=== PATIENT | male | born 1935 | race Caucasian/White ===

== ENCOUNTER 2018-06-03 07:41 | Day surgery (SDC) | payer MEDICARE, BC ==
[~2018-06-03] VITALS: Ht 188 cm; Wt 80.0 kg
[2018-06-03 08:05] VITALS: BP 140/70; PULSE 53; TEMP 98.3
[2018-06-03 08:19] LABS: HEMATOCRIT 37.5 % (42.0-52.0); HEMOGLOBIN 12.9 g/dl (13.5-18.0); MEAN CELL VOLUME 91 fl (80.0-100.0); MEAN CORPUSCULAR HEMOGLOBIN 31 pg (27.0-31.0); MEAN CORPUSCULAR HGB CONC 34 g/dl (33.0-37.0); MEAN PLATELET VOLUME 10.3 fl (7.4-10.4); PLATELET COUNT 270 K/mm3 (130-400); RED BLOOD COUNT 4.13 M/mm3 (4.20-5.60); REDCELL DISTRIBUTION WIDTH-CV 12.3 % (11.5-14.5)
[2018-06-03 08:23] LABS: INR 1.1 (0.8-3.0)
[2018-06-03] MEDS ORDERED: BENICAR40 MG PO (08:44)
[2018-06-03] MEDS ORDERED: HCTZ12.5TAB PO (08:45)
[2018-06-03] MEDS ORDERED: LIPITOR 10MG10 MG PO (08:45)
[2018-06-03] MEDS ORDERED: MEGA MULTIVITAM1 TAB PO (08:46)
[2018-06-03] MEDS ORDERED: THE MEDICINE S200 M2 PO (08:47)
[2018-06-03] MEDS ORDERED: ASPIRIN 81M81 MG/TA2 PO (08:48)
[2018-06-03] MEDS ORDERED: D-2000 90 MG-201 TAB PO (08:48)
[2018-06-03] MEDS ORDERED: B COMPLEX #11 TAB (08:50)
[2018-06-03 13:25] VITALS: BP 145/73; BP 152/77; PULSE 46; PULSE 55; TEMP 98.2
[2018-06-03 13:36] VITALS: BP 152/77; PULSE 47
[2018-06-03 13:55] VITALS: BP 152/74; PULSE 46
== END 2018-06-03 14:20 | disposition home or self-care (01) ==
LOC: COL.CAR 07:41
PROVIDERS: Internal Medicine Interventional Cardiology
DX: I49.9 Cardiac arrhythmia, unspecified (principal); I10 Essential (primary) hypertension; Z79.82 Long term (current) use of aspirin; Z79.02 Long term (current) use of antithrombotics/antiplatelets; Z85.828 Personal history of other malignant neoplasm of skin; Z82.49 Family history of ischemic heart disease and other diseases of the circulatory system

== ENCOUNTER 2019-05-11 13:56 | Inpatient (IN) | payer MEDICARE, BC ==
[~2019-05-11] VITALS: Ht 188 cm; Wt 85.0 kg
[~2019-05-11 13:56] MED LIST: ASPIRIN 81M81 MG/TA2 PO; B COMPLEX #11 TAB; BENICAR40 MG PO; HCTZ12.5TAB PO; IMDUR 30MG30 MG/TAB PO; LIPITOR 10MG10 MG PO; MAGNESIUM500 MG PO; MEGA MULTIVITAM1 TAB PO; NITROSTAT0.4 MG/TAB SL; THE MEDICINE S200 M2 PO; VITAMIND3 5000 PO; [UNRECOGNIZED DRUG - OTHER] PO
[2019-05-11 16:46] VITALS: BP 135/61; PULSE 59; TEMP 98.2
--- NOTE | 2019-05-11 17:10 | NUR ---
Report from Navin. Pt admitted to room 333, to chair with call lt in reach. Pt alert, oriented, denies using assistive devices for ambulation, reports pain 2/10 in sternum. NKDA, full code, wears glasses, own teeth, no hearing aids.
--- NOTE | 2019-05-11 20:25 | NUR ---
Pt's graft site to LLE with two punctures, lower thigh area pink-red, some ecchymosis, lower CDI, edges of both well approximated without swelling or drainage. Report to ARIANA Lazar.
--- NOTE | 2019-05-11 21:00 | NUR ---
PT SITTING IN RECLINER. WATCHING TV. VERY PLEASANT AND COOPERATIVE. PT REQUESTED AIR MATTRESS FOR SORE COCCYX AND BACK PAIN. ASSISTED TO BR. STEADY GAIT SBA. NO WALKER. VOIDED W/O DIFFICUTLY. NO SKIN ISSUES TO COCCYX. SHIFT ASSESSMENT COMPLETED. REVIEWED IPR THERAPY SCHEDULE & ROUTINE. READY FOR BED. CALLIGHT IN REACH. BED ALARM SET.
--- NOTE | 2019-05-12 03:11 | NUR ---
PT C/O LOW BACK ACHE. WHICH HE HAS AT HOME TOO. ASSISTED TO RECLINER. TYLENOL GIVEN. CALL LIGHT IN REACH.
[2019-05-12 05:39] VITALS: BP 143/59; PULSE 61; TEMP 98.3
--- NOTE | 2019-05-12 10:47 | NUR ---
Patient resting in bed at this time, call light in reach and bed alarm is on. Patient attended morning therapies. He reports not sleeping well last night due to back ache. Staff placed an air mattress on his bed and patient reports that it has provided more comfort. Patient took his morning pills one at a time and drank from mug without a straw per dysphagia requirements. Patient's daughter was agitated with staff this morning, she would not discuss it with this nurse. Patient was asked if it was okay for staff to give personal health information on him to his daughter and he stated, "Yes what ever she wants." "Not sure what is wrong. Just calm her down." This nurse completed his assessment and will continue to monitor patient.
--- NOTE | 2019-05-12 15:55 | NUR ---
SW met with the patient to complete initial intake, as the patient is new to [facility]. The patient lives in [place] with his , Abril. He reports independence with ADLs prior to hospitalization and does not have any DME. The patient's PCP is Dr. Hubert Hair and he receives his medications at the [facility] in [place]. He reports no difficulties obtaining his meds. The patient does not have advanced directives in EMR or in his chart, but he states that he does have them completed and at home. He states that his is his DPOA-HC. SW to continue to follow to ensure a safe discharge.
[2019-05-12 16:31] VITALS: BP 134/54; PULSE 65; TEMP 98.1
--- NOTE | 2019-05-12 19:23 | NUR ---
Patient was complaining of ankle swelling pain and he does have pitting edema to bilateral ankles. Dr. Chapin was called and he okayed for patient to have a one time order of Lasix 40 mg to help with ankle edema. Patient's daughter had this nurse call the [facility] to verify that he had been given Furosemide when he was there and what dose it was. This nurse called [facility] and found out that he had been given Forosemide 40 mg PO two doses that started on 05/10 and ended on 05/11. See orders for labs to be drawn tomorrow per Dr. Chapin. Reported off to night nurse.
--- NOTE | 2019-05-12 20:00 | NUR ---
PT RESTING IN BED. SEEMS ALITTLE WITHDARWN/ DEPRESSED? DENIES ANYTHING WRONG. DENIES PAIN. ENC PT TO KEEP FEET ELEVATED MUCH POSSIBLE AND THAT WE'LL KEEP TRACK OF I&O 'S D/T LASIX AND FLUID RESTRICTION. PT MOD I IN ROOM WITH W/C. CALL LIGHT IN REACH. PT DENIES NEEDS. RELATES HE IS JUST BORED.
--- NOTE | 2019-05-12 22:00 | NUR ---
PT SITTING ON SOFA READING A BOOK. DENIES NEEDS.
--- NOTE | 2019-05-13 02:32 | NUR ---
PT SLEEPING. NO DISTRESS.
--- NOTE | 2019-05-13 05:05 | NUR ---
PT RE[ORTS HAS NOT SLEPT VERY MUCH AT ALL. UPINDEPENDENTLY TO BR.
[2019-05-13 05:15] VITALS: BP 138/65; PULSE 72; TEMP 98.1
[2019-05-13 08:03] LABS: BASO % 0.3 % (0.0-2.0); EOS # 0.1 (0.0-0.7); EOS % 1.1 % (0-4.0); GRAN # 7.5 (1.4-6.5); GRAN % 72.2 % (42.2-75.2); LYMPH # 1.6 (1.2-3.4); LYMPH % 15.1 % (20.0-51.0); MEAN CELL VOLUME 94 fl (80.0-100.0); MEAN CORPUSCULAR HGB CONC 33 g/dl (33.0-37.0); MEAN PLATELET VOLUME 10.5 fl (7.4-10.4); MONO # 1.1 (0.1-0.6); MONO % 10.2 % (1.7-9.3); PLATELET COUNT 529 K/mm3 (130-400); RED BLOOD COUNT 3.13 M/mm3 (4.20-5.60); REDCELL DISTRIBUTION WIDTH-CV 13.1 % (11.5-14.5)
[2019-05-13 08:04] LABS: HEMATOCRIT 29.3 % (42.0-52.0); HEMOGLOBIN 9.6 g/dl (13.5-18.0); MEAN CORPUSCULAR HEMOGLOBIN 31 pg (27.0-31.0)
--- NOTE | 2019-05-13 08:39 | NUR ---
Observed patient having pain with urination this morning and reporting that he felt like he couldn't pee very well. Bladder scan completed and he had 999 ml in bladder. Receivied orders from Dr. Chapin for straight Cath and to send out for UA/UC. This was completed. Patient tolerated with some discomfort reported. Will continue to monitor I&O's on patient.
[2019-05-13 08:40] LABS: CALCIUM 8.4 mg/dL (8.4-10.2); CREATININE, serum 1.26 (0.66-1.25); MAGNESIUM 1.7 mg/dL (1.6-2.3); POTASSIUM 4.2 mmol/L (3.4-5.0)
[2019-05-13 08:47] LABS: PH 7 (5-8); SQUAMOUS EPITHELIAL None Seen /hpf; URINE APPEARANCE Clear; URINE BACTERIA Rare /hpf; URINE BILIRUBIN Negative (NEGATIVE); URINE BLOOD Negative (NEGATIVE); URINE COLOR Yellow; URINE GLUCOSE Negative (NEGATIVE); URINE KETONE Negative (NEGATIVE); URINE LEUKOCYTE ESTERASE Negative (NEGATIVE); URINE NITRATE Negative (NEGATIVE); URINE PROTEIN(semi-quant) Negative (NEGATIVE); URINE RBC 0-2 /hpf; URINE UROBILINOGEN Negative (NEGATIVE)
[2019-05-13 10:02] LABS: COLLECTION METHOD CLEAN CATCH
--- NOTE | 2019-05-13 16:23 | NUR ---
Bladder scan completed and had 396 retention. Patient had voided prior to this with [address] Chapin was called and he started patient on Flomax. Patient was given this med. Will continue to monitor.
--- NOTE | 2019-05-13 16:29 | NUR ---
Patient requested the use of jia hose. See new orders per Dr. Amber Chapni. Patient was fitted and is currently wearing these jia hose. Will continue to monitor.
[2019-05-13 17:12] VITALS: BP 116/49; PULSE 70; TEMP 98.1
--- NOTE | 2019-05-13 20:30 | NUR ---
PT TOOK WALK IN PENA WITH WC. PT DENIES ANY BLADDER DISTRESS AT THIS TIME. PT VERBALIZED READY TO GO HOME.
--- NOTE | 2019-05-13 21:00 | NUR ---
AIR MATTRESS IN PLACE D/T BACK DISCOMFORT ON ADMISSION. SCHEDULED TYLENOL GIVEN.
--- NOTE | 2019-05-14 02:20 | NUR ---
PT FRUSTRATED WITH BACK DISCOMFORT AND BED. GAVE TYLENOL AFTER PT INITIALLY DECLINED. GAVE BACK RUB AND PLACED WARM PACK BETWEEN SHOULDER BLADES. PT BACK TO BED. HO B ELEVATED AND FEET ELEVATED ON TWO PILLOWS. FOR EDEMA.
[2019-05-14 05:47] VITALS: BP 131/72; PULSE 72; TEMP 98.3
--- NOTE | 2019-05-14 06:00 | NUR ---
PT SLEPT WELL SINCE TYLENOL GIVEN EARLIER. PAIN GONE. KENYA HOSE IRRITATING FEET- REMOVED FOR NOW. EDEMA IMPROVED.
--- NOTE | 2019-05-14 08:57 | NUR ---
PT REPORTS PAIN ACROSS BACK AND SHOULDERS. STERNUM IS SORE BUT NOT PAINFUL. VOIDS WELL LT YELLOW URINE. ATE 100%MEAL. GIVEN AM MEDS
--- NOTE | 2019-05-14 12:45 | NUR ---
PT STATES HE HAS AMBULATED AROUND THE UNIT 4 TIMES TODAY.
[2019-05-14 16:26] VITALS: BP 107/60; PULSE 74; TEMP 98.3
[2019-05-15 04:20] VITALS: BP 142/58; PULSE 79; TEMP 99.1
--- NOTE | 2019-05-15 06:18 | NUR ---
PT HAD A RESTFUL NIGHT. DAUGHTER CALLED FROM OUT OF STATE TO GET UPDATE.
[2019-05-15 07:13] LABS: BASO % 0.2 % (0.0-2.0); EOS % 0.2 % (0-4.0); GRAN # 16.5 (1.4-6.5); GRAN % 87.4 % (42.2-75.2); LYMPH # 1.1 (1.2-3.4); LYMPH % 5.6 % (20.0-51.0); MEAN CELL VOLUME 94 fl (80.0-100.0); MEAN CORPUSCULAR HGB CONC 33 g/dl (33.0-37.0); MEAN PLATELET VOLUME 10.3 fl (7.4-10.4); MONO # 1.1 (0.1-0.6); PLATELET COUNT 437 K/mm3 (130-400); RED BLOOD COUNT 3.01 M/mm3 (4.20-5.60); REDCELL DISTRIBUTION WIDTH-CV 13.2 % (11.5-14.5)
[2019-05-15 07:27] LABS: ALBUMIN 2.7 gm/dL (3.5-5.0); BILIRUBIN,TOTAL 0.4 mg/dL (0.0-1.0); CALCIUM 8.3 mg/dL (8.4-10.2); CREATININE, serum 1.26 (0.66-1.25); MAGNESIUM 1.8 mg/dL (1.6-2.3); POTASSIUM 4.5 mmol/L (3.4-5.0); TOTAL PROTEIN 5.9 gm/dL (6.4-8.2)
[2019-05-15 07:30] LABS: HEMATOCRIT 28.4 % (42.0-52.0); HEMOGLOBIN 9.3 g/dl (13.5-18.0); MEAN CORPUSCULAR HEMOGLOBIN 31 pg (27.0-31.0)
--- NOTE | 2019-05-15 13:30 | NUR ---
Phone call this morning at shift change from daughter ARIANA Aguirre in [place]. She requests pt have a chest x-ray because pt's mother of PE- mom had been hospitalized, getting picked up after discharged, and found in hospital room, had been asymptomatic, but "blew clots". Also reported pt has hx of respiratory issues- smoking and environmental exposure. Nurse took daughter's phone number and was given permission to return call and leave a message. [phone]
--- NOTE | 2019-05-15 13:34 | NUR ---
This morning, informed pt of daughter's concern, he states he thought he had a chest xray before leaving . Denies dizziness, shortness of air, N/V/D. Does have chronic numbness in feet. Denies urinary retention this morning. Eye drops PRN in room, applied muscle rub to upper back and across posterior shoulders. A&O, dry sense of humor, made independent in room today.
--- NOTE | 2019-05-15 13:41 | NUR ---
Left Carla voicemail that orders obtained for cxr.
[2019-05-15 16:42] VITALS: BP 110/54; PULSE 70; TEMP 99
--- NOTE | 2019-05-15 21:15 | NUR ---
Patient sits up in recliner. Declines snack. HS meds all reviewed and given. Denies pain at this time. Walker in reach. Is independent in room and deng.
--- NOTE | 2019-05-15 22:32 | NUR ---
Assisted with placement of Kpad.
--- NOTE | 2019-05-16 02:30 | NUR ---
Patient has been resting in bed with eyes closed. Respirations with ease.
[2019-05-16 04:10] VITALS: BP 142/55; PULSE 73; TEMP 99
[2019-05-16 06:49] LABS: CALCIUM 8.5 mg/dL (8.4-10.2); CREATININE, serum 1.41 (0.66-1.25); MAGNESIUM 1.9 mg/dL (1.6-2.3); POTASSIUM 4.7 mmol/L (3.4-5.0)
[2019-05-16 06:56] LABS: BASO % 0.2 % (0.0-2.0); EOS # 0.1 (0.0-0.7); EOS % 0.3 % (0-4.0); GRAN # 14.7 (1.4-6.5); GRAN % 85.8 % (42.2-75.2); MEAN CELL VOLUME 95 fl (80.0-100.0); MEAN CORPUSCULAR HGB CONC 33 g/dl (33.0-37.0); MEAN PLATELET VOLUME 10.5 fl (7.4-10.4); MONO # 1.2 (0.1-0.6); MONO % 7.1 % (1.7-9.3); PLATELET COUNT 425 K/mm3 (130-400); RED BLOOD COUNT 2.88 M/mm3 (4.20-5.60); REDCELL DISTRIBUTION WIDTH-CV 13.4 % (11.5-14.5)
[2019-05-16 07:06] LABS: HEMATOCRIT 27.3 % (42.0-52.0); HEMOGLOBIN 8.9 g/dl (13.5-18.0); MEAN CORPUSCULAR HEMOGLOBIN 31 pg (27.0-31.0)
--- NOTE | 2019-05-16 13:26 | NUR ---
Report from ARIANA Stephens. Pt independent in room without device, states he did not sleep well last night. Pt wanted muscle rub applied to upper back, assisted, tylenol scheduled. KPAD PRN. Glasses and yellow gripper socks in place. Takes pills one at a time with thin liquids.
--- NOTE | 2019-05-16 14:05 | NUR ---
Faxed face sheet to [facility], received "OK" fax receipt.
--- NOTE | 2019-05-16 14:18 | NUR ---
AUDREY followed-up with the patient regarding discharge. The pt chose [facility] for his outpatient physical therapy and reports his can drive him in town. SW informed pt's nurse. The pt is needing a ride home after discharge. AUDREY contacted [facility] and they can only provide local rides and not to [place]. AUDREY will continue to follow.
[2019-05-16 17:31] VITALS: BP 145/57; PULSE 81; TEMP 97.8
--- NOTE | 2019-05-16 20:45 | NUR ---
HS meds reviewed and given. Denies need for additional pain med. Alert and oriented, watches TV. Affect quiet. Requests to not be disturbed during the night unless calls.
--- NOTE | 2019-05-16 22:45 | NUR ---
Has been quiet in room.
[2019-05-17 06:11] VITALS: BP 131/61; PULSE 77; TEMP 99.6
--- NOTE | 2019-05-17 06:14 | NUR ---
REPORTS HAD A BETTER NIGHT. DENIES NEEDS.
[2019-05-17] MEDS ORDERED: OMNICEF 300MG300 MG PO (09:02)
[2019-05-17] MEDS ORDERED: TYLENOL 500MG500 MG PO (09:03)
[2019-05-17] MEDS ORDERED: ZITHROMAX Z PA250 MG PO (09:03)
--- NOTE | 2019-05-17 09:15 | NUR ---
SW presented the IM form to the patient. The patient understood and signed the form. The original was placed in the chart and a copy was provided to the patient.
--- NOTE | 2019-05-17 10:46 | NUR ---
The patient is to discharge home today, 05/17 with outpatient physical therapy. The pt is requiring transporation because his cannot drive out of town. SW contacted housekeeping assistant and approved a taxi voucher for the pt. SW provided the voucher. SW provided additional community resources to the pt. There are no additional needs at this time.
--- NOTE | 2019-05-17 11:13 | NUR ---
Patient resting in recliner at this time, call light in reach and independent in his room. Patient ready to be discharged to home. Will be going by taxi today. Pain/chest and back pain refused any pain meds. Will continue to monitor.
[2019-05-17] MEDS ORDERED: FLOMAX 0.40.4 MG/CAP PO (11:57)
--- NOTE | 2019-05-17 14:09 | NUR ---
Patient Health Summary, Discharge Summary, and Home Meds printed and reviewed with patient. Stressed importance of follow up appointments. Belongings gathered by EVGENY/Pati including heart pillow, glasses clothes and shoes. Patient transported via wheelchair by MARIBELL/Fam and seatbelted for ride home via taxi cab. Patient received a voucher to use to for cab expense. Patient denied any questions.
== END 2019-05-17 13:30 | disposition home or self-care (01) | DRG 947 ==
PROVIDERS: Student in an Organized Health Care Education/Training Program; ADMIT Internal Medicine
DX: R53.81 Other malaise (principal); J18.9 Pneumonia, unspecified organism; N17.9 Acute kidney failure, unspecified; I25.10 Atherosclerotic heart disease of native coronary artery without angina pectoris; I10 Essential (primary) hypertension; E78.5 Hyperlipidemia, unspecified; H26.9 Unspecified cataract; F17.210 Nicotine dependence, cigarettes, uncomplicated; D64.9 Anemia, unspecified; Z95.1 Presence of aortocoronary bypass graft
CPT/HCPCS: 99222-AI; 99239; J1644